=== PATIENT | female | born 1985 | race Caucasian/White ===

== ENCOUNTER 2020-08-22 12:00 | Outpatient (CLI) | payer OTHER, SELFPAY ==
[2020-08-23 01:35] LABS: SARS-CoV-2 RNA PCR Positive
== END 2020-08-22 12:01 | disposition home or self-care (01) ==
LOC: CHSLAB 12:06
PROVIDERS: PCP Internal Medicine; Visit Provider Internal Medicine
DX: U07.1 COVID-19 (principal)
CPT/HCPCS: 87635; C9803; U0003